=== PATIENT | male | born 2000 | race Hispanic/Latino ===

== ENCOUNTER 2021-04-02 09:54 | Emergency (ER) | payer MEDICAID ==
[2021-04-02] MEDS ORDERED: Boostrix 0.5 ML (Tdap) VIAL ONE (10:40)
== END 2021-04-02 10:55 | disposition home or self-care (01) ==
LOC: ERS 09:54
DX: S91.114A Laceration without foreign body of right lesser toe(s) without damage to nail, initial encounter (principal); Z23 Encounter for immunization; W45.0XXA Nail entering through skin, initial encounter
CPT/HCPCS: 12001; 90715

== ENCOUNTER 2021-10-05 15:03 | Emergency (ER) | payer MEDICAID ==
[2021-10-05] MEDS ORDERED: Hydrocortisone Sod Succ/PF 100 mg/2 ml Vial ONE (15:50)
== END 2021-10-05 15:56 | disposition home or self-care (01) ==
LOC: ERS 15:03
DX: L25.9 Unspecified contact dermatitis, unspecified cause (principal)
CPT/HCPCS: 96372; 99282; J1720

== ENCOUNTER 2023-05-25 13:08 | Emergency (ER) | payer OTHER, SELFPAY | END 2023-05-25 16:01 | disposition home or self-care (01) | LOC: ERS 13:08 | DX: S61.213A Laceration without foreign body of left middle finger without damage to nail, initial encounter (principal); W26.0XXA Contact with knife, initial encounter | CPT/HCPCS: 99282 ==

== ENCOUNTER 2024-12-15 17:54 | Emergency (ER) | payer SELFPAY ==
[2024-12-15] MEDS ORDERED: Bacitracin 1 PK ONE (19:28)
[2024-12-15] MEDS ORDERED: Lidocaine 1% PF 5 ML VIAL ONE (19:28)
[2024-12-15] MEDS ORDERED: Ketorolac Tromethamine 30 MG (1 mL) VIAL ONE (19:28)
== END 2024-12-15 20:57 | disposition home or self-care (01) ==
LOC: ERS 17:54
DX: S61.411A Laceration without foreign body of right hand, initial encounter (principal); Y04.2XXA Assault by strike against or bumped into by another person, initial encounter
CPT/HCPCS: 12001; 96372; 99282; J1885